=== PATIENT | female | born 1985 | race Caucasian/White ===

== ENCOUNTER 2017-01-30 06:09 | Day surgery (SDC) | payer OTHER ==
[~2017-01-30] VITALS: Ht 170.2 cm; Wt 87.6 kg
[2017-01-30] VITALS (11 sets, daily range): BP systolic 114–131; BP diastolic 65–85; PULSE 70–93; RESP 13–22; Ht 170.2 cm; Wt 87.6 kg
[~2017-01-30 06:09] MED LIST: CELE100C PO; allertec; birth control
[2017-01-30] MEDS ORDERED: POLYMYXIN/BACITRACIN 1L IRRIG ONE (07:23)
[2017-01-30] MEDS ORDERED: CEFAZOLIN 1 GM/50 ML (PMX) 50 ML IVPB SCH (07:30)
[2017-01-30] MEDS ORDERED: ONDANSETRON 4 MG INJ ONE (07:40)
[2017-01-30] MEDS ORDERED: FENTAnyl 50 MCG/ML VIAL ONE (07:40)
[2017-01-30] MEDS ORDERED: PROPOFOL 20 ML ONE (07:40)
[2017-01-30] MEDS ORDERED: EPHEDrine SULFATE 50 MG/5 ML SYG ONE (07:40)
[2017-01-30] MEDS ORDERED: MIDAZOLAM 1 MG/ML 2 ML INJ ONE ×3 (07:40→08:15)
[2017-01-30] MEDS ORDERED: DEXAMETHASONE 4 MG/ML 1 ML INJ ONE (07:40)
[2017-01-30] MEDS ORDERED: CEFAZOLIN 1 GM INJ ONE (07:44)
--- NOTE | 2017-01-30 07:47 | HPN ---
Date/Time of Note Date/Time of Note DATE: 01/30/17 TIME: 07:47 Interval H&P Admission Note Pt. seen H&P reviewed: No system changes SHIRA PAUL DPM Jan 30, 2017 07:47
[2017-01-30] MEDS ORDERED: BUPIVACAINE 0.5% (MPF) 30 ML INJ INJ ONE (07:50)
[2017-01-30] MEDS ORDERED: LIDOCAINE 2% (MDV) 20 ML INJ INJ ONE (07:50)
[2017-01-30] MEDS ORDERED: LIDOCAINE 2% (MDV) 20 ML INJ ONE (07:58)
[2017-01-30] MEDS ORDERED: BUPIVACAINE 0.5% (SDV) 30 ML INJ ONE (07:58)
[2017-01-30] MEDS ORDERED: EPHEDrine SULFATE 50 MG/5 ML SYG IV PRN (08:30)
[2017-01-30] MEDS ORDERED: HYDROmorphONE (0.2 MG/ML) 10ML SYG IV PRN ×3 (08:30)
[2017-01-30] MEDS ORDERED: ONDANSETRON 4 MG INJ IV PRN (08:30)
[2017-01-30] MEDS ORDERED: MEPERIDINE 25 MG INJ IV PRN (08:30)
--- NOTE | 2017-01-30 08:56 | OPR ---
Date/Time of Note Date/Time of Note DATE: 01/30/17 TIME: 08:51 Operative Report Procedure Date: Jan 30, 2017 Preoperative Diagnosis Painful hardware right foot Right foot pain Postoperative Diagnosis Painful hardware right foot Right foot pain Operation Performed Removal of painful hardware right foot Intraoperative use and interpretation of fluoroscopy Surgeon: SHIRA PAUL DPM Anesthesia: general Estimated Blood Loss: minimal Specimens Screw 2 Complications: None Pt Condition Post Procedure: stable Disposition: PACU Indications This is a pleasant 31-year-old female patient who had undergone open reduction with internal fixation of right foot Lisfranc fracture dislocation several months ago. She has started to develop pain in the right foot for the past 3 months and the pain has been attributed to the hardware present. Recommendation was made for removal of hardware. Risks and complications of this type surgery was discussed patient in great detail. Risks complications discussed include but are not limited to postoperative infection, postoperative pain, failure of surgery to correct problem, need for additional surgical procedures, the fracture of the Lisfranc joint, deep venous thrombosis, limb loss and loss of life. Patient understands complications and agrees to the procedure. Informed consent was obtained, signed and placed in the chart. No guarantee or warranty was given or implied as to the outcome of procedure either verbal or written form. Operative\Procedure Findings 2 screws found in the right foot under C-arm. Procedure Description Patient was seen in the preoperative area. Proposed surgery was discussed with patient in great detail. Opportunity was given for patient to ask questions and all questions were answered. An informed consent was obtained. The patient was brought into the operating room and was placed on the operative table in supine position. All bony prominences were padded properly. Patient was placed under mild sedation and the right ankle was injected with 20 cc of a one-to-one mix of 2% lidocaine plain and 0.5% Marcaine plain. An ankle tourniquet was applied. The right foot was scrubbed, prepped and draped in usual aseptic manner. Attention was directed to the midfoot with previous incisions were found. C-arm was used for location of the head of the screws. Small 1.5 cm incision was made using a #15 blade. Bleeders were cauterized as necessary. Dissection was carefully deepened through the subcutaneous layer all the way down to the periosteal layer. The head of the screws was found. The screwdriver was used and both screws were removed. The area was irrigated with copious amounts of sterile normal saline. C-arm was used to confirm removal of screws and pictures were obtained. The skin was closed using 5-0 Monocryl subcuticular stitch pattern. Steri-Strips were applied. Sterile dressing was applied and the pneumatic ankle tourniquet was deflated at this time. Prompt hyperemic response was noted to digits of the right foot. The patient tolerated procedure and anesthesia well patient was transferred to the recovery room with vital signs stable and vascular status intact to the right foot. Postoperative orders were written. Patient can do partial weightbearing on the right foot is postop shoe and crutches. I will see the patient in 1 week for postoperative follow-up. SHIRA PAUL DPM Jan 30, 2017 08:56
--- NOTE | 2017-01-30 13:36 | RADRPT ---
PROCEDURE: Intraoperative imaging of the right foot with fluoroscopy. CLINICAL INDICATION: Right foot pain. Hardware removal. Intraoperative. TECHNIQUE: 2 images of the right foot were obtained in the operating room with an image intensifie r. No radiologist was in attendance. 5.2 seconds of fluoroscopy time was used. COMPARISON: No prior study is available for comparison. FINDINGS: The initial image demonstrates 2 cervical screws in the mid foot the second image demonstrates remov al of the screws. IMPRESSION: 1. Intraoperative imaging of the right foot. RPTAT: QQ .Carlos Eduardo Colon MD, MD Date Time Electronically viewed and signed by .Carlos Eduardo Colon MD, MD on 01/30/2017 13:35 .R/
--- NOTE | 2017-01-30 13:37 | RADRPT ---
PROCEDURE: XR Right Ankle. CLINICAL INDICATION: Right ankle pain. Postop. TECHNIQUE: 3 views. Frontal, lateral, and oblique. COMPARISON: None. FINDINGS: There is no fracture or dislocation. The soft tissues are normal. The articular surfaces are intact. There are screw holes in the mid foot medially. There is no lytic or blastic lesion. There is no radiopaque foreign body. IMPRESSION: 1. Screw holes in the mid foot medially at the site of surgical screw removal. 2. Otherwise unremarkable images of the right ankle. RPTAT: QQ .Carlos Eduardo Colon MD, Date Time Electronically viewed and signed by .Carlos Eduardo Colon MD, on 01/30/2017 13:36 .R/
== END 2017-01-30 10:20 | disposition home or self-care (01) ==
LOC: SDS 06:09
PROVIDERS: ATTEND Podiatrist Foot & Ankle Surgery
DX: T84.84XA Pain due to internal orthopedic prosthetic devices, implants and grafts, initial encounter (principal); Y83.8 Other surgical procedures as the cause of abnormal reaction of the patient, or of later complication, without mention of misadventure at the time of the procedure; Y92.89 Other specified places as the place of occurrence of the external cause; F41.9 Anxiety disorder, unspecified; E66.9 Obesity, unspecified; Z68.30 Body mass index [BMI] 30.0-30.9, adult
CPT/HCPCS: 20680; 73610; 73620; 84703; J0690; J1100; J2250; J2405; J3010; Z7512; Z7610